=== PATIENT | female | born 1995 | race African-American/Black ===

== ENCOUNTER 2017-06-04 05:58 | Inpatient (IN) | payer OTHER ==
[2017-06-04] VITALS (27 sets, daily range): BP systolic 102–127; BP diastolic 52–81; PULSE 63–100; RESP 16–20; TEMP 98–98.5
[~2017-06-04] VITALS: Ht 167.6 cm; Wt 68.0 kg
[~2017-06-04 05:58] MED LIST: PANT20 PO; TRAM50 PO; ZOFR4TAB3 SL
--- NOTE | 2017-06-04 07:34 | PD ---
HPI Chief Complaint ctx Date Seen: Jun 04, 2017 Time Seen: 07:26 Travel History International Travel<30 Days: No Contact w/Intl Traveler<30Days: No Known Affected Area: No History of Present Illness HPI Pt is a 21y/o G1 @ 35.1wks. She has PNC in [facility] and plans to deliver there. States that she is here as a student. She presents for evaluation of ctx qhich started at 3am and are every 15m. She denies LOF or VB. +FM. She denies any complications this . Weeks Gestation: 35 Para: 0 : 1 History Past Medical History Medical History: Denies Significant Hx Obstetric History Obstetric History 1. current Past Surgical History Surgical History: No Previous Surgery Family History Family History: Negative Social History Alcohol Use: No Tobacco Use: No Substance Abuse: No Allergies-Medications (Allergen,Severity, Reaction): Coded Allergies: No Known Allergies (Unverified , 01/03/16) Home Meds Active Scripts Ondansetron (Zofran ODT) 4 Mg Tab, 4 MG SL Q6H Y for NAUSEA, #6 TAB FOR NAUSEA/VOMITING Prov:Rocael Newby MD 01/03/16 Tramadol Hcl (Ultram) 50 Mg Tab, 1 TAB PO Q6HR for Pain, #20 TAB FOR PAIN Prov:Rocael Newby MD 01/03/16 Pantoprazole Sodium (Protonix) 20 Mg Tab, 20 MG PO DAILY, #30 TAB Prov:Rocael Newby MD 01/03/16 Review of Systems Except as stated in HPI: all other systems reviewed are Neg Physical Exam Narrative General: well developed, well nourished, no acute distress HEENT: normocephalic atraumatic, extraocular movements intact, neck supple Abdomen: soft, gravid, nontender, nondistended Extremities: full range of motion Skin: normal coloration, no rashes, no suspicious skin lesions noted Neurologic: cranial nerves 2-12 grossly intact, normal muscle tone, normal gait Psychiatric: normal mood and affect, appropriate FHTs: 135-140, +accels, 2 mild variable decels, moderate variability, reactive [place]: irregular ctx Cvx: 90/-3 Data Data Vital Signs Reviewed: Yes Orders Orders Vital Signs (Adult) .ON ADMISSION (06/04/17 07:16) ^ Labor Status (06/04/17 07:16) Urinalysis - C+S If Indicated (06/04/17 07:16) ^ Non Stress Test (06/04/17 07:16) MDM Plan 21y/o G1 @ 35.1wks for r/o PTL -- FHTs cat 1 -- cvx /-3 -- toco with irregular ctx -- UA and IVF bolus, recheck cvx for stability Diagnosis Diagnosis: Primary Impression: 35 weeks gestation of Additional Impression: Uterine contractions during Bernardo Arreguin MD Jun 04, 2017 07:34
[2017-06-04 08:16] LABS: BACTERIA, URINE RARE /hpf; BLOOD, URINE NEG (NEG); GLUCOSE,URINE NEG (NEG); KETONE, URINE NEG (NEG); MUCUS URINE FEW /lpf (OCC); NITRITE,URINE NEG (NEG); SQUAMOUS EPITHELIAL CELL URINE 1 /hpf (0-5); TRANSITIONAL EPI CELLS, URINE <1 /hpf; URINE COLOR LIGHT-YELLOW (YELLW/STRAW)
[2017-06-04 08:18] LABS: COMMENT (UR) CULT NOT INDICATED; CULTURE IF INDICATED CULT NOT INDICATED
[2017-06-04] MEDS ORDERED: LACTATED RINGER'S 1000 ML INJ 1,000 ML IV PRN (09:56)
[2017-06-04] MEDS ORDERED: PENICILLIN G POTASSIUM INJ 5,000,000 UNITS in SODIUM CHLORIDE 0.9% INJ 100 ML IV ONE (10:00)
[2017-06-04] MEDS ORDERED: LIDOCAINE HCL 1% 50 ML VIAL INFIL PRN (10:00)
[2017-06-04] MEDS ORDERED: OXYTOCIN 30 UNITS-500ML PREMIX 500 ML IV ONE (10:00)
[2017-06-04] MEDS ORDERED: MINERAL OIL 10 ML VIAL TOPICAL PRN (10:00)
[2017-06-04] MEDS ORDERED: LIDOCAINE HCL 1% 50 ML VIAL I-DERMAL PRN (10:00)
[2017-06-04] MEDS ORDERED: ONDANSETRON HCL 4 MG/2 ML VIAL IV PUSH PRN (10:00)
[2017-06-04] MEDS ORDERED: SODIUM CHLORID 0.9% 500 ML INJ 500 ML IV PRN (10:00)
[2017-06-04] MEDS ORDERED: CITRIC ACID-SODIUM CITRATE LIQ 30 ML UDC PO SCH (10:00)
[2017-06-04] MEDS ORDERED: SODIUM CHLOR 0.9% 1000 ML INJ 1,000 ML IV PRN (10:16)
--- NOTE | 2017-06-04 10:36 | HHI.PR ---
COMPUTER NETWORK SPECIALIST Note Note HPI Chief Complaint ctx Date Seen: Jun 04, 2017 Time Seen: 07:26 Travel History International Travel<30 Days: No Contact w/Intl Traveler<30Days: No Known Affected Area: No History of Present Illness HPI Pt is a 21y/o G1 @ 35.1wks. She has PNC in [facility] and plans to deliver there. States that she is here as a student. She presents for evaluation of ctx qhich started at 3am and are every 15m. She denies LOF or VB. +FM. She denies any complications this . Weeks Gestation: 35 Para: 0 : 1 History Past Medical History Medical History: Denies Significant Hx Obstetric History Obstetric History 1. current Past Surgical History Surgical History: No Previous Surgery Family History Family History: Negative Social History Alcohol Use: No Tobacco Use: No Substance Abuse: No Allergies-Medications (Allergen,Severity, Reaction): Coded Allergies: No Known Allergies (Unverified , 01/03/16) Home Meds Active Scripts Ondansetron (Zofran ODT) 4 Mg Tab, 4 MG SL Q6H Y for NAUSEA, #6 TAB FOR NAUSEA/VOMITING Prov:Rocael Newby MD 01/03/16 Tramadol Hcl (Ultram) 50 Mg Tab, 1 TAB PO Q6HR for Pain, #20 TAB FOR PAIN Prov:Rocael Newby MD 01/03/16 Pantoprazole Sodium (Protonix) 20 Mg Tab, 20 MG PO DAILY, #30 TAB Prov:Rocael Newby MD 01/03/16 Review of Systems Except as stated in HPI: all other systems reviewed are Neg Physical Exam Narrative General: well developed, well nourished, no acute distress HEENT: normocephalic atraumatic, extraocular movements intact, neck supple Abdomen: soft, gravid, nontender, nondistended Extremities: full range of motion Skin: normal coloration, no rashes, no suspicious skin lesions noted Neurologic: cranial nerves 2-12 grossly intact, normal muscle tone, normal gait Psychiatric: normal mood and affect, appropriate FHTs: 135-140, +accels, 2 mild variable decels, moderate variability, reactive [place]: irregular ctx Cvx: /-3 Data Data Vital Signs Reviewed: Yes Orders Orders Vital Signs (Adult) .ON ADMISSION (06/04/17 07:16) ^ Labor Status (06/04/17 07:16) Urinalysis - C+S If Indicated (06/04/17 07:16) ^ Non Stress Test (06/04/17 07:16) MDM Plan 21y/o G1 @ 35.1wks for r/o PTL -- FHTs cat 1 -- cvx /-3 -- toco with irregular ctx -- UA and IVF bolus, recheck cvx for stability Diagnosis Diagnosis: Primary Impression: 35 weeks gestation of Additional Impression: Uterine contractions during Bernardo Arreguin MD Jun 04, 2017 07:34 Addendum: Bernardo Arreguin MD on 06/04/17 @ 10:11 Pt is s/p IVF bolus. Still c/o ctx. Cvx rechecked and /-2. Admit for PTL. BMZ x2. No tocolysis. GBS ordered, PCN ordered. Bernardo Arreguin MD Jun 04, 2017 10:36
[2017-06-04] MEDS: BETAMETHASONE SOD PHOS/ACETATE SUSP 30 MG/5 ML VIAL IM SCH (11:35)
[2017-06-04] MEDS: LACTATED RINGER'S 1000 ML INJ 1,000 ML IV SCH ×5 (11:35→17:56)
[2017-06-04] MEDS ORDERED: PENICILLIN G POTASSIUM INJ 2,500,000 UNITS in SODIUM CHLORIDE 0.9% INJ 100 ML IV SCH (14:00)
[2017-06-04] MEDS: PENICILLIN G POTASSIUM INJ 2,500,000 UNITS in SODIUM CHLORIDE 0.9% INJ 100 ML IV SCH ×3 (15:30→23:57)
[2017-06-04 15:48] LABS: AUTOMATED NEUTROPHIL # 8.5 TH/MM3 (1.8-7.7); BASOPHIL % 0.1 % (0.0-2.0); EOSINOPHIL % 0.1 % (0.0-4.0); HEMO FLAGS DIFF FINAL; LYMPH % 6.3 % (9.0-44.0); LYMPHOCYTE # 0.6 TH/MM3 (1.0-4.8); MEAN CELL VOLUME 82.6 FL (80.0-100.0); MEAN CORPUSCULAR HEMOGLOBIN 27.1 PG (27.0-34.0); MEAN CORPUSCULAR HGB CONC 32.8 % (32.0-36.0); MONO % 2.9 % (0.0-8.0); NEUT % 90.6 % (16.0-70.0); PLATELET COUNT 239 TH/MM3 (150-450); RED BLOOD COUNT 3.64 MIL/MM3 (4.00-5.30); RED CELL DISTRIBUTION WIDTH 14.5 % (11.6-17.2); WHITE BLOOD COUNT 9.4 TH/MM3 (4.0-11.0)
[2017-06-05] MEDS: LACTATED RINGER'S 1000 ML INJ 1,000 ML IV SCH ×5 (01:56→09:56)
[2017-06-05 03:25] VITALS: RESP 18
[2017-06-05] MEDS ORDERED: PENICILLIN G POTASSIUM INJ 2,500,000 UNITS in SODIUM CHLORIDE 0.9% INJ 100 ML IV SCH ×2 (05:00)
[2017-06-05] MEDS: PENICILLIN G POTASSIUM INJ 2,500,000 UNITS in SODIUM CHLORIDE 0.9% INJ 100 ML IV SCH ×2 (05:00→08:29)
[2017-06-05 08:08] VITALS: BP 113/72; PULSE 90; RESP 18; TEMP 98
--- NOTE | 2017-06-05 08:26 | PD.OB.ANTE ---
Subjective Interval History Pt is a 21 y at 35 weeks and 2 days. Cervix changed from 1cm to 3cm in traige and patient was admitted. Has been comfortable. No vaginal bleeding, or leaking. Active movements. No fevers or chills. Objective Vital Signs Vital Signs Date Time Temp Pulse Resp B/P (MAP) Pulse Ox O2 Delivery O2 Flow Rate FiO2 06/05/17 03:25 18 06/04/17 23:25 18 06/04/17 22:49 79 113/61 (78) 06/04/17 21:07 18 06/04/17 21:00 84 116/74 (88) 06/04/17 20:30 78 102/56 (71) 06/04/17 20:25 18 06/04/17 20:00 89 117/65 (82) 06/04/17 19:30 92 112/71 (85) 06/04/17 19:00 89 116/73 (87) 06/04/17 18:30 100 117/74 (88) 06/04/17 18:21 98.0 06/04/17 18:00 96 116/68 (84) 06/04/17 17:30 93 116/69 (85) 06/04/17 17:00 79 114/71 (85) 06/04/17 16:30 80 117/81 (93) 06/04/17 16:18 98.4 20 06/04/17 16:00 75 127/74 (91) 06/04/17 15:30 78 122/77 (92) 06/04/17 15:00 74 114/68 (83) 06/04/17 14:37 75 118/55 (76) 06/04/17 14:00 74 124/75 (91) 06/04/17 13:30 85 117/69 (85) 06/04/17 13:25 82 119/70 (86) 06/04/17 12:18 16 06/04/17 11:30 98.5 16 06/04/17 11:26 63 108/52 (70) 06/04/17 09:45 16 Lab & Micro Results Test 06/04/17 14:30 White Blood Count 9.4 TH/MM3 Red Blood Count 3.64 MIL/MM3 Hemoglobin 9.9 GM/DL Hematocrit 30.0 % Mean Corpuscular Volume 82.6 FL Mean Corpuscular Hemoglobin 27.1 PG Mean Corpuscular Hemoglobin Concent 32.8 % Red Cell Distribution Width 14.5 % Platelet Count 239 TH/MM3 Mean Platelet Volume 9.2 FL Neutrophils (%) (Auto) 90.6 % Lymphocytes (%) (Auto) 6.3 % Monocytes (%) (Auto) 2.9 % Eosinophils (%) (Auto) 0.1 % Basophils (%) (Auto) 0.1 % Neutrophils # (Auto) 8.5 TH/MM3 Lymphocytes # (Auto) 0.6 TH/MM3 Monocytes # (Auto) 0.3 TH/MM3 Eosinophils # (Auto) 0.0 TH/MM3 Basophils # (Auto) 0.0 TH/MM3 CBC Comment DIFF FINAL Differential Comment HIV (1&2) Antibody NEGATIVE Physical Exam GENERAL: Well-nourished, well-developed patient. CARDIOVASCULAR: Regular rate and rhythm without murmurs, gallops, or rubs. RESPIRATORY: Breath sounds equal bilaterally. No accessory muscle use. ABDOMEN/GI: Abdomen soft, non-tender. Fundus: [-] GENITOURINARY: External Genitalia: intact and normal in appearance Cervix: [soft] Dilatation: [3cm] Effacement: [90%] Station: [-1] Presentation: [vertex] Membranes: [intact] Uterine Contractions: [10 minutes] FHT's: Category: [1] Baseline: [120s] Reactive: [-] Variability: [good] Decels: [-] EXTREMITIES: No cyanosis or edema, non-tender, without signs of DVT. Assessment and Plan Problem List: (1) 35 weeks gestation of ICD Codes: Z3A.35 - 35 weeks gestation of Status: Acute (2) Uterine contractions during ICD Codes: O62.2 - Other uterine inertia Status: Acute Assessment and Plan G1 at 35 weeks and 2 days. cervical change in triage and was admitted but labor has since stalled. Pt is due 2nd dose Betamethasone at 10:30. If still unchanged, consider D/C with labor precautions. Patient lives 10 minutes away. Williams Bonilla MD Jun 05, 2017 08:26
[2017-06-05] MEDS: BETAMETHASONE SOD PHOS/ACETATE SUSP 30 MG/5 ML VIAL IM SCH (11:22)
[2017-06-05 11:26] VITALS: BP 102/51; PULSE 84
[2017-06-05 11:27] VITALS: TEMP 98.2
[2017-06-05 11:28] VITALS: RESP 18
--- NOTE | 2017-06-05 12:22 | HHI.DCPOC ---
Discharge Care Plan Diagnosis: (1) 35 weeks gestation of (2) Uterine contractions during Report Symptoms to Your Doctor -Temperature above 100.5 degrees -Redness, of incision or excessive or foul smelling drainage -Unusual pain or calf pain -Increased vaginal bleeding -Painful or difficulty urinating -Feelings of extreme sadness or anxiety after 2 weeks Goals to Promote Your Health * To prevent worsening of your condition and complications, please continue bedrest for the next few days until your follow up with your OB doctor and are told otherwise. * To maintain your health at the optimal level, please follow medical recommendations. Directions to Meet Your Goals Take your medications as prescribed Follow your dietary instruction Follow activity as directed Ensure plenty of rest for recovery Drink fluids for hydration Keep your appointments as scheduled Take your immunizations and boosters as scheduled If your symptoms worsen call your PCP, if no PCP go to Urgent Care Center or Emergency Room Smoking is Dangerous to Your Health. Avoid second hand smoke Call the 24-hour crisis hotline for domestic abuse at Ck Parker MD R2 Jun 05, 2017 12:22
== END 2017-06-05 12:50 | disposition home or self-care (01) | DRG 778 ==
LOC: HOBED 05:58 → H2EA 10:23
PROVIDERS: ADMIT Obstetrics & Gynecology; ATTEND Obstetrics & Gynecology
DX: O60.03 Preterm labor without delivery, third trimester (principal); Z3A.35 35 weeks gestation of pregnancy
CPT/HCPCS: 80307; 81001; 85025; 86703; 86850; 86900; 86901; 86920; 86921; 86922; 87081; 87150; J0702; J2540; J7120

== ENCOUNTER 2017-06-20 16:26 | Inpatient (IN) | payer OTHER ==
[2017-06-20] VITALS (36 sets, daily range): BP systolic 110–133; BP diastolic 60–89; PULSE 72–117; RESP 18; TEMP 98
[~2017-06-20] VITALS: Ht 167.6 cm; Wt 68.0 kg
[~2017-06-20 16:26] MED LIST changes: +DIPHTH/TETANUS/ACEL PERTUSSIS (BOOSTER) 0.5 ML VIAL/PFS IM ONE
[2017-06-20] MEDS ORDERED: LACTATED RINGER'S 1000 ML INJ 1,000 ML IV PRN (17:02)
--- NOTE | 2017-06-20 17:07 | PD ---
HPI Chief Complaint LOF Date Seen: Jun 20, 2017 Time Seen: 17:04 Travel History International Travel<30 Days: No Contact w/Intl Traveler<30Days: No Known Affected Area: No History of Present Illness HPI Pt is a 21y/o G1 @ 37.3wks. She has PNC in [facility] where her family resides but she lives here and is a college student. She anticipated delivering there. Today she states that she broke her water at 2:30pm. She had some ctx which then stopped. No complications this . +FM. Weeks Gestation: 37 Para: 0 : 1 History Past Medical History Medical History: Denies Significant Hx Obstetric History Obstetric History 1. current Past Surgical History Surgical History: No Previous Surgery Family History Family History: Negative Social History Alcohol Use: No Tobacco Use: No Substance Abuse: No Allergies-Medications (Allergen,Severity, Reaction): Coded Allergies: No Known Allergies (Unverified Allergy, Unknown, 06/04/17) Home Meds Active Scripts Ondansetron (Zofran ODT) 4 Mg Tab, 4 MG SL Q6H Y for NAUSEA, #6 TAB FOR NAUSEA/VOMITING Prov:Rocael Newby MD 01/03/16 Tramadol Hcl (Ultram) 50 Mg Tab, 1 TAB PO Q6HR for Pain, #20 TAB FOR PAIN Prov:Rocael Newby MD 01/03/16 Pantoprazole Sodium (Protonix) 20 Mg Tab, 20 MG PO DAILY, #30 TAB Prov:Rocael Newby MD 01/03/16 Review of Systems Except as stated in HPI: all other systems reviewed are Neg Physical Exam Narrative General: well developed, well nourished, no acute distress HEENT: normocephalic atraumatic, extraocular movements intact, neck supple Abdomen: soft, gravid, nontender, nondistended Uterus: fundus term Extremities: full range of motion Skin: normal coloration, no rashes, no suspicious skin lesions noted Neurologic: cranial nerves 2-12 grossly intact, normal muscle tone, normal gait Psychiatric: normal mood and affect, appropriate FHTs: 140s, +accels, mild variable decels, moderate variability, non-reactive [place]: irritable Cvx: 4/100/-1 Data Data Vital Signs Reviewed: Yes Orders Orders Ob (2e) Additional Admit Info (06/20/17 16:55) Vital Signs (Adult) .ON ADMISSION (06/20/17 17:02) ^ Labor Status (06/20/17 17:02) ^ Non Stress Test (06/20/17 17:02) Pamg-1 Test .ONCE (06/20/17 17:02) Admit To Inpatient (06/20/17 ) Vital Signs (Adult) .Per protocol (06/20/17 17:02) Heart (06/20/17 17:02) Amnioinfusion (06/20/17 17:02) Urinary Catheter Management .ONCE (06/20/17 17:02) Diet Liquid (06/20/17 Dinner) Lactated Ringer's 1000 Ml Inj (Lr 1000 M (06/20/17 17:02) Lactated Ringer's 1000 Ml Inj (Lr 1000 M (06/20/17 17:02) Sodium Chlorid 0.9% 500 Ml Inj (Ns 500 M (06/20/17 17:15) Sodium Chlor 0.9% 1000 Ml Inj (Ns 1000 M (06/20/17 17:22) Lidocaine 1% Inj (50 Ml) (Xylocaine 1% I (06/20/17 17:15) Citric Acid-Sodium Citrate Liq (Bicitra (06/20/17 17:15) Ondansetron Inj (Zofran Inj) (06/20/17 17:15) Fentanyl Inj (Fentanyl Inj) (06/20/17 17:15) Fentanyl Inj (Fentanyl Inj) (06/20/17 17:15) Complete Blood Count With Diff (06/20/17 17:02) Hold Clot (06/20/17 17:02) Abo/Rh Blood Type (06/20/17 17:02) Urinalysis - C+S If Indicated (06/20/17 17:02) Drug Screen, Random Urine (06/20/17 17:02) Rapid Plasma Regin (Rpr) W Ttr (06/20/17 17:02) Resp Oxygen Non Rebreathe Mask (06/20/17 ) ^ Epidural / Intrathecal Infus (06/20/17 17:02) Oxytocin 30 Units-500ml Premix (Pitocin (06/20/17 17:15) Lidocaine 1% Inj (50 Ml) (Xylocaine 1% I (06/20/17 17:15) Light Mineral Oil (Muri-Lube Oil) (06/20/17 17:15) Inpatient Certification (06/20/17 ) ^ Non Stress Test (06/20/17 17:02) Response To Medication .Post New Med Administration, Reaction (06/20/17 17:02) ^ Discontinue Medication (06/20/17 17:02) Oxytocin Drip (2-2-30) (06/20/17 17:15) Group B Strep: Negative MDM Plan 21y/o G1 @ 37.3wks with PROM -- admit to L&D -- CLD, epidural/fernández PRN -- pitocin augmentation -- monitor FHTs closely -- anticipate Diagnosis Diagnosis: Primary Impression: 37 weeks gestation of Additional Impressions: PROM (premature rupture of membranes) Non-reactive NST (non-stress test) Bernardo Arreguin MD Jun 20, 2017 17:07
[2017-06-20] MEDS ORDERED: MINERAL OIL 10 ML VIAL TOPICAL PRN (17:15)
[2017-06-20] MEDS ORDERED: OXYTOCIN 30 UNITS-500ML PREMIX 500 ML IV ONE (17:15)
[2017-06-20] MEDS ORDERED: LIDOCAINE HCL 1% 50 ML VIAL I-DERMAL PRN (17:15)
[2017-06-20] MEDS ORDERED: SODIUM CHLORID 0.9% 500 ML INJ 500 ML IV PRN (17:15)
[2017-06-20] MEDS ORDERED: CITRIC ACID-SODIUM CITRATE LIQ 30 ML UDC PO SCH (17:15)
[2017-06-20] MEDS ORDERED: OXYTOCIN 30 UNITS-500ML PREMIX 500 ML IV SCH ×2 (17:15→23:15)
[2017-06-20] MEDS ORDERED: ONDANSETRON HCL 4 MG/2 ML VIAL IV PUSH PRN (17:15)
[2017-06-20] MEDS ORDERED: LIDOCAINE HCL 1% 50 ML VIAL INFIL PRN (17:15)
[2017-06-20] MEDS ORDERED: SODIUM CHLOR 0.9% 1000 ML INJ 1,000 ML IV PRN (17:22)
[2017-06-20] MEDS ORDERED: SE-NTAB3 PO (18:10)
[2017-06-20 18:14] LABS: AUTOMATED NEUTROPHIL # 6.7 TH/MM3 (1.8-7.7); BASOPHIL % 0.4 % (0.0-2.0); EOSINOPHIL % 0.5 % (0.0-4.0); HEMATOCRIT 33.3 % (35.0-46.0); LYMPH % 15.2 % (9.0-44.0); LYMPHOCYTE # 1.4 TH/MM3 (1.0-4.8); MEAN CELL VOLUME 81.6 FL (80.0-100.0); MEAN CORPUSCULAR HEMOGLOBIN 26.9 PG (27.0-34.0); MEAN PLATELET VOLUME 9.6 FL (7.0-11.0); MONO % 11.1 % (0.0-8.0); NEUT % 72.8 % (16.0-70.0); PLATELET COUNT 280 TH/MM3 (150-450); RED BLOOD COUNT 4.08 MIL/MM3 (4.00-5.30); RED CELL DISTRIBUTION WIDTH 15.5 % (11.6-17.2); WHITE BLOOD COUNT 9.2 TH/MM3 (4.0-11.0)
[2017-06-20] MEDS: LACTATED RINGER'S 1000 ML INJ 1,000 ML IV SCH ×2 (18:14→20:59)
[2017-06-20 18:41] LABS: BILIRUBIN, URINE NEG (NEG); BLOOD, URINE NEG (NEG); GLUCOSE,URINE NEG (NEG); KETONE, URINE NEG (NEG); NITRITE,URINE NEG (NEG); PH, URINE 6.5 (5.0-8.5); SQUAMOUS EPITHELIAL CELL URINE 5 /hpf (0-5); URINE COLOR LIGHT-YELLOW (YELLW/STRAW); URINE LEUKOCYTE ESTERASE MOD (NEG)
[2017-06-20] MEDS ORDERED: OXYTOCIN 10 UNIT/ML AMP ONE (21:17)
--- NOTE | 2017-06-20 23:08 | PD.OB.DELI ---
Weeks gestation: 37 Pt started active labor?: Yes Medical induction of labor?: Yes Artificial rupture of membrane: No Anesthesia: Epidural Episiotomy: None Vaginal Delivery: Normal, Spontaneous Presentation: Occiput anterior Nuchal Cord: None Delayed cord clamping (45 sec): Yes Infant: Male Delivery date: Jun 20, 2017 Delivery time: 21:13 One Minute : 7 Five Minute : 9 Weight: 3200g Placenta: Spontaneous delivery, Intact Laceration: No lacerations Estimated blood loss: 250cc Bernardo Arreguin MD Jun 20, 2017 23:08
[2017-06-20] MEDS ORDERED: ZOLPIDEM TARTRATE 5 MG TAB PO PRN (23:15)
[2017-06-20] MEDS ORDERED: ACETAMINOPHEN 325 MG TAB PO PRN (23:15)
[2017-06-20] MEDS ORDERED: WITCH HAZEL 50%/GLYCERIN 12.5% 40 PAD JAR TOPICAL PRN (23:15)
[2017-06-20] MEDS ORDERED: ALUMINUM/MAGNESIUM/SIMETH 30 ML CUP PO PRN (23:15)
[2017-06-20] MEDS: IBUPROFEN 800 MG TAB PO PRN (23:24)
[2017-06-21 00:03] VITALS: BP 131/74; PULSE 91; RESP 18; TEMP 97.8; O2SAT 98
--- NOTE | 2017-06-21 07:26 | HHI.OB ---
Subjective Post Day: 1 Remarks day # 1. AFVSS overnight. Decreased lochia. Denies dysuria. No breast tenderness. She is feeding the baby via breast and formula. Appetite good. No nausea or vomiting. Ambulating well. Denies calf pain or shortness of breath. Otherwise, she is doing well this morning and has no other concerns. Objective Vitals/I&O Vital Signs Date Time Temp Pulse Resp B/P (MAP) Pulse Ox O2 Delivery O2 Flow Rate FiO2 06/21/17 00:03 97.8 91 18 131/74 (93) 98 06/20/17 23:25 116/66 (83) 06/20/17 23:25 111 06/20/17 23:15 98 122/63 (82) 06/20/17 23:00 104 131/74 (93) 06/20/17 22:55 98.0 06/20/17 22:45 97 06/20/17 22:45 113/74 (87) 06/20/17 22:40 18 06/20/17 22:30 81 120/79 (93) 06/20/17 22:16 87 118/70 (86) 06/20/17 22:10 18 06/20/17 22:00 93 129/84 (99) 06/20/17 21:54 18 06/20/17 21:45 93 112/68 (83) 06/20/17 21:30 98.0 06/20/17 21:30 18 06/20/17 21:15 106 06/20/17 21:15 123/60 (81) 06/20/17 21:10 117 06/20/17 21:00 133/81 (98) 06/20/17 20:55 79 06/20/17 20:50 80 06/20/17 20:45 127/89 (102) 06/20/17 20:43 18 06/20/17 20:40 74 06/20/17 20:30 127/79 (95) 06/20/17 20:26 18 06/20/17 20:25 82 06/20/17 20:15 110/70 (83) 06/20/17 20:10 78 06/20/17 20:00 18 06/20/17 20:00 89 127/75 (92) 06/20/17 19:55 81 06/20/17 19:49 128/84 (99) 06/20/17 19:40 72 06/20/17 19:30 18 06/20/17 19:25 85 06/20/17 19:23 122/82 (95) 06/20/17 19:10 82 06/20/17 19:00 98.0 06/20/17 18:58 18 06/20/17 18:55 87 Objective Remarks GENERAL: Well-nourished, well-developed female in no apparent distress. CARDIOVASCULAR: Regular rate and rhythm without murmurs, gallops, or rubs. RESPIRATORY: Breath sounds equal bilaterally. No accessory muscle use. ABDOMEN/GI: Abdomen soft, non-tender. Fundus: Firm, non-tender at umbilicus. GENITOURINARY: Light to moderate bleeding. EXTREMITIES: No cyanosis or edema, non-tender, without signs of DVT. Medications and IVs Current Medications Medications (Trade) Dose Ordered Sig/Nico Route Start Time Stop Time Status Last Admin (Flu (Quadrivalent) Vaccine Inj) 0.5 ml ONCE ONCE IM 06/21/17 10:00 06/21/17 10:01 (Tylenol) 650 mg Q4H PRN PO 06/20/17 23:15 (Motrin) 800 mg Q8H PRN PO 06/20/17 23:15 06/20/17 23:24 (Tucks Pads) 1 applic QID PRN TOPICAL 06/20/17 23:15 (Ambien) 5 mg HS PRN PO 06/20/17 23:15 (Mag-Al Plus Susp Liq) 15 ml Q8H PRN PO 06/20/17 23:15 Assessment/Plan Attending Attestation 21 y/o female who is PPD# 1 s/p . -Continue routine care. -Acetaminophen and ibuprofen PRN pain. -Encouraged OOB. Advised pelvic rest for 6 wks. -Re: ctrl, she would like to weigh her options with OB in [facility]. -Anticipate discharge tomorrow. Janice Rabago Dr., MD R2 Jun 21, 2017 07:26
[2017-06-21 08:00] VITALS: TEMP 97.6
[2017-06-21 08:09] VITALS: BP 113/77; PULSE 18; RESP 18; O2SAT 97
[2017-06-21 08:10] VITALS: PULSE 85
[2017-06-21] MEDS ORDERED: INFLUENZA VIRUS VACCINE (QUADRIVALENT) 0.5 ML SYR IM ONE (10:00)
[2017-06-21 19:48] VITALS: BP 105/69; PULSE 78; RESP 16; TEMP 98.1; O2SAT 97
[2017-06-22] MEDS: IBUPROFEN 800 MG TAB PO PRN (06:09)
[2017-06-22] MEDS ORDERED: IBUP1TAB7 PO (07:21)
--- NOTE | 2017-06-22 07:22 | HHI.DCPOC ---
Discharge Care Plan Diagnosis: (1) Normal vaginal delivery Report Symptoms to Your Doctor -Temperature above 100.5 degrees -Redness, of incision or excessive or foul smelling drainage -Unusual pain or calf pain -Increased vaginal bleeding -Painful or difficulty urinating -Feelings of extreme sadness or anxiety after 2 weeks Goals to Promote Your Health * To prevent worsening of your condition and complications * To maintain your health at the optimal level Directions to Meet Your Goals Take your medications as prescribed Follow your dietary instruction Follow activity as directed Ensure plenty of rest for recovery Drink fluids for hydration Keep your appointments as scheduled Take your immunizations and boosters as scheduled If your symptoms worsen call your PCP, if no PCP go to Urgent Care Center or Emergency Room Smoking is Dangerous to Your Health. Avoid second hand smoke Call the 24-hour crisis hotline for domestic abuse at Janice Ramirez MD R2 Jun 22, 2017 07:22
[2017-06-22 08:00] VITALS: BP 98/78; PULSE 75; RESP 14; TEMP 98.1
== END 2017-06-22 12:24 | disposition home or self-care (01) | DRG 775 ==
LOC: HOBED 16:26 → H2EB 17:00 → H1EA 23:41
PROVIDERS: ADMIT Obstetrics & Gynecology; ATTEND Obstetrics & Gynecology
PROC: 10E0XZZ Delivery of Products of Conception, External Approach (ICD-10-PCS; principal; 2017-06-20)
DX: O42.02 Full-term premature rupture of membranes, onset of labor within 24 hours of rupture (principal); Z37.0 Single live birth; Z3A.37 37 weeks gestation of pregnancy; Z23 Encounter for immunization
CPT/HCPCS: 59025; 80307; 81001; 84112; 85025; 86592; 86900; 86901; 87340; 90686; 90715; J2590; J3010; J7120; Q2038